=== PATIENT | male | born 1950 | race Caucasian/White ===

== ENCOUNTER → 2019-01-14 | Outpatient (CLI) | payer MEDICAID | END | disposition home or self-care (01) | LOC: MSC 10:45 | PROVIDERS: ATTEND Anesthesiology | DX: M47.27 Other spondylosis with radiculopathy, lumbosacral region (principal); M40.299 Other kyphosis, site unspecified; M62.830 Muscle spasm of back; G89.4 Chronic pain syndrome; M25.9 Joint disorder, unspecified; J44.9 Chronic obstructive pulmonary disease, unspecified; Z99.81 Dependence on supplemental oxygen; Z79.891 Long term (current) use of opiate analgesic ==